=== PATIENT | male | born 1940 | race Caucasian/White ===

== ENCOUNTER 2021-11-22 11:55 | Emergency (ER) | payer OTHER, SELFPAY ==
[2021-11-22 12:09] VITALS: BP 131/69; PULSE 70; RESP 16; TEMP 36.6; O2SAT 98
--- NOTE | 2021-11-22 12:09 | ED.WOUNDLAC ---
HPI - Wound/Laceration General Chief Complaint: Wound/Laceration Stated Complaint: bed sore Time Seen by Provider: 11/22/21 12:09 Source: patient, family and RN notes reviewed History of Present Illness HPI narrative: Patient is an 81-year-old male who presents the urgent care with his daughter with complaints of a bedsore to the right inner buttocks for the last week and a half. Patient states that he has been keeping it clean with plain Dial soap and water. States that he has not visibly looked at the area. No other acute complaints. No acute distress noted. Patient and daughter aware of the plan of care. Some parts of this dictation were generated by voice recognition software and may contain typographical and/or grammatical inaccuracies. Related Data Home Medications Medication Instructions Recorded Confirmed atorvastatin 20 mg PO DAILY 11/22/21 11/22/21 cetirizine 10 mg PO DAILY 11/22/21 11/22/21 clopidogrel [Plavix] 75 mg PO DAILY 11/22/21 11/22/21 insulin glargine [Lantus U-100 20 unit SUBCUT DAILY 11/22/21 11/22/21 Insulin] isosorbide dinitrate 20 mg PO BID 11/22/21 11/22/21 Allergies Allergy/AdvReac Type Severity Reaction Status Date / Time atenolol Allergy Unknown Rash Verified 11/22/21 12:22 atorvastatin Allergy Unknown Rash Verified 11/22/21 12:22 carbamazepine Allergy Unknown Rash Verified 11/22/21 12:22 Penicillins Allergy Unknown Rash Verified 11/22/21 12:22 zolpidem Allergy Unknown Rash Verified 11/22/21 12:22 Review of Systems Review of Systems: CONSTITUTIONAL: Denies fever, chills, or sweats. EYES: Denies visual changes, redness, or discharge. ENT: Denies rhinorrhea, congestion, sore throat, or otalgia. CARDIOVASCULAR: Denies chest pain, palpitations, or edema. RESPIRATORY: Denies cough or dyspnea. GASTROINTESTINAL: Denies abdominal pain, nausea, vomiting, or diarrhea. GENITOURINARY: Denies dysuria or hematuria. SKIN: Reports of a bedsore to the inner right buttocks MUSCULOSKELETAL: Denies back pain, joint pain, or myalgia. NEUROLOGIC: Denies headache, numbness, or weakness. All other systems reviewed are negative, except as documented in HPI. PMFSH Comments At the time of my signature, I reviewed and agree with the nursing past medical, surgical, social, and family history. There is no relevant family history pertinent to the patient complaint. Exam Narrative: GENERAL: This is a well-nourished, well-developed patient, in no apparent distress. HEAD: normocephalic, atraumatic. EYES: PERRL. Sclera clear/white. Vision is grossly intact. EARS: External ears normal NOSE: External nose normal with no obvious nasal discharge, nares without redness, no rhinorrhea. THROAT: Mucous membranes moist NECK: Neck supple SKIN: 1 x 1 cm stage I ulceration to the right inner buttocks, appears to be healing well with mild superficial scratch to the center NEURO: awake, alert, and oriented to person, place and time. There were no obvious focal neurologic abnormalities. EXTREMITIES: No clubbing, cyanosis, or edema. Course Course Level of Care: Express Care Visit Vital Signs Vital signs: Vital Signs Temperature 97.8 F 11/22/21 12:09 Pulse Rate 70 11/22/21 12:09 Respiratory Rate 16 11/22/21 12:09 Blood Pressure 131/69 11/22/21 12:09 Pulse Oximetry 98 11/22/21 12:09 Temperature 97.8 F 11/22/21 12:09 Pulse Rate 70 11/22/21 12:09 Respiratory Rate 16 11/22/21 12:09 Blood Pressure 131/69 11/22/21 12:09 Pulse Oximetry 98 11/22/21 12:09 Reviewed MDM - Wound/Laceration MDM Narrative Medical decision making narrative: Advised patient to continue keeping the area clean with plain Dial soap and water. Make sure that when you make a bowel movement, you are wiping the area clean with soap and water and/or a pericloth/baby wipe. May use the prescription cream to the affected area and/or use just plain Vaseline. If you develop any increase in pain associated with opening of the sore or
== END 2021-11-22 12:51 | disposition home or self-care (01) ==
PROVIDERS: Emergency Provider Nurse Practitioner Family; PCP Internal Medicine
DX: L89.311 Pressure ulcer of right buttock, stage 1 (principal); E11.9 Type 2 diabetes mellitus without complications; I50.9 Heart failure, unspecified; Z95.1 Presence of aortocoronary bypass graft
CPT/HCPCS: 99213; G0463